=== PATIENT | female | born 1930 | race Caucasian/White ===

== ENCOUNTER 2017-04-09 10:41 | Emergency (ER) | payer MEDICARE ==
[~2017-04-09] VITALS: Ht 157.5 cm; Wt 63.4 kg
[2017-04-09] MEDS ORDERED: LIDOcaine 1% 30ml vial SQ STA (13:56)
[2017-04-09] MEDS ORDERED: HYDR-565 PO (14:29)
[2017-04-09] MEDS ORDERED: HYDROcodone/acetaminophen 10/325mg tab PO ONE (14:30)
[2017-04-09 14:39] VITALS: BP 149/84
[2017-04-09 15:48] LABS: COLOR,SYNOVIAL FLUID OTHER
[2017-04-09 15:49] LABS: APPEARANCE,SYNOVIAL FLUID CLOUDY; SYN RBC 9225 /CU MM (0); SYN WBC 4850 /CU MM (0-200); SYNOVIAL FLUID CRYSTALS QT NO CRYSTALS SEEN
== END 2017-04-09 14:41 | disposition home or self-care (01) ==
LOC: ER 10:42
DX: M25.461 Effusion, right knee (principal); I10 Essential (primary) hypertension; E11.9 Type 2 diabetes mellitus without complications; Z79.82 Long term (current) use of aspirin
CPT/HCPCS: 20610; 89051; 89060; 99284; A6449; J3490; 20100; 26010

== ENCOUNTER 2021-10-31 09:09 | Emergency (ER) | payer MEDICARE ==
[~2021-10-31] VITALS: Ht 157.5 cm; Wt 48.8 kg
[2021-10-31 09:45] VITALS: BP 124/74
[2021-10-31] MEDS ORDERED: ondansetron 4mg rapidly disintigrating tab PO ONE (09:50)
[2021-10-31] MEDS ORDERED: LIDOcaine 1% W/epiNEPHrine 1:100,000 20ml vial IJ ONE (11:05)
== END 2021-10-31 12:13 | disposition home or self-care (01) ==
LOC: ER 09:10
DX: S01.91XA Laceration without foreign body of unspecified part of head, initial encounter (principal); S06.0X0A Concussion without loss of consciousness, initial encounter; I10 Essential (primary) hypertension; E11.9 Type 2 diabetes mellitus without complications; W19.XXXA Unspecified fall, initial encounter; Y93.89 Activity, other specified; Y92.89 Other specified places as the place of occurrence of the external cause; Y99.8 Other external cause status; Z88.5 Allergy status to narcotic agent
CPT/HCPCS: 12002; 70450; 72125; 72131; 99284